=== PATIENT | male | born 1930 | race Caucasian/White ===

== ENCOUNTER 2016-05-16 01:34 | Emergency (ER) | payer OTHER ==
[~2016-05-16 01:34] MED LIST: INSULIN GLARGINE 100 UNIT/ML VIAL SC SCH; INSULIN LISPRO 100 UNIT/ML SC SCH
[2016-05-16 01:45] VITALS: PULSE 72
[2016-05-16] MEDS ORDERED: INSULIN LISPRO 100 UNIT/ML SC ONE (02:53)
--- NOTE | 2016-05-16 03:02 | EDPHY ---
H & P Stated Complaint: insulin pump out of insulin- last BQ 174 at 0100 Time Seen by Provider: 05/16/16 02:28 HPI/ROS: HPI The patient presents because he is out of insulin for his insulin pump. He ran out earlier this evening. He said he had a refill in the refrigerator, but he does not. His last blood glucose was 174. He denies any nausea or vomiting, abdominal pain, any other symptoms.. REVIEW OF SYSTEMS Constitutional: No fever, no chills. Skin: No rashes. Neurological: No headache. PMHx: Diabetes on insulin, followed at [facility] Hx: Lives independently PHYSICAL General Appearance: Alert, no distress Eyes: Pupils equal and round no pallor or injection ENT, Mouth: Mucous membranes moist Respiratory: Breathing comfortably Skin: Warm and dry, no rashes Musculoskeletal: Neck is supple non tender Extremities: symmetrical, full range of motion Psychiatric: Patient is oriented X 3, there is no agitation Source: Patient Exam Limitations: No limitations - Medical/Surgical History Hx Asthma: No Hx Chronic Respiratory Disease: No Hx Diabetes: Yes Hx Cardiac Disease: No Hx Renal Disease: No Hx Cirrhosis: No Hx HIV/AIDS: No Hx Splenectomy or Spleen Trauma: No Other PMH: HTN, hypothyroid, - Social History Smoking Status: Never smoked Constitutional: Initial Vital Signs Temperature (C) 36.8 C 05/16/16 01:38 Heart Rate 72 05/16/16 01:38 Respiratory Rate 18 05/16/16 01:38 Blood Pressure 154/79 H 05/16/16 01:38 O2 Sat (%) 90 L 05/16/16 01:38 O2 Delivery Mode Room Air Allergies/Adverse Reactions: No Known Allergies Allergy (Unverified 05/16/16 01:37) Home Medications: Medication Instructions Recorded Insulin Lispro [Humalog] 300 unit SQ ONCE #1 cartridge 05/16/16 Insulin Syringe 05/16/16 THYROID 05/16/16 Medical Decision Making Differential Diagnosis: This is an 86-year-old man with diabetes who uses an insulin pump who ran out of the insulin for his pump earlier tonight. His last blood sugar was 174. He is not exhibiting any signs or symptoms concerning for DKA or HHS. We will order him the Humalog but he usually uses to put in his pump. He will follow up tomorrow with his doctors at [facility]. Departure - Departure Disposition: Home, Routine, Self-Care Clinical Impression: Medication refill, Insulin pump status, Hyperglycemia Condition: Good Instructions: Insulin Lispro (By injection) Referrals: VENITA HENSLEY [Primary Care Provider] - As per Instructions Prescriptions: Insulin Lispro [Humalog] 300 unit SQ ONCE #1 cartridge
[2016-05-16 03:42] VITALS: BP 160/79; RESP 15; TEMP 97.9; O2SAT 92
== END 2016-05-16 03:42 | disposition home or self-care (01) ==
DX: Z76.0 Encounter for issue of repeat prescription (principal); E11.65 Type 2 diabetes mellitus with hyperglycemia; I10 Essential (primary) hypertension; Z79.4 Long term (current) use of insulin
CPT/HCPCS: 99281; J1815

== ENCOUNTER 2016-11-24 08:47 | Emergency (ER) | payer OTHER ==
--- NOTE | 2016-11-24 09:04 | EDPHY ---
H & P Stated Complaint: n/v/abd pain Time Seen by Provider: 11/24/16 08:59 HPI/ROS: CHIEF COMPLAINT: Nausea, vomiting, abdominal cramping HISTORY OF PRESENT ILLNESS: The patient presents to the ED with a 1 day history of nausea, vomiting and abdominal cramping. The patient has a history of insulin dependent diabetes. He is on insulin pump. The patient reports his blood sugars have been well controlled. He checked it 3 or 4 times yesterday was normal. He had no symptoms of abdominal pain, nausea or vomiting yesterday. The patient denies any history of abdominal surgery. The patient denies additional significant past medical history. The patient has no complaints of dysuria. The patient does report he chronically has 2 alcoholic beverages a night. REVIEW OF SYSTEMS: A comprehensive 10 point review of systems is otherwise negative aside from elements mentioned in the history of present illness. Source: Patient - Personal History Current Tetanus/Diphtheria Vaccine: Yes - Medical/Surgical History Hx Asthma: No Hx Chronic Respiratory Disease: No Hx Diabetes: Yes Hx Cardiac Disease: No Hx Renal Disease: No Hx Cirrhosis: No Hx Alcoholism: No Hx HIV/AIDS: No Hx Splenectomy or Spleen Trauma: No Other PMH: HTN, hypothyroid, diabetic - Social History Smoking Status: Never smoked - Physical Exam Exam: General Appearance: Alert, no distress Eyes: Pupils equal and round no pallor or injection ENT, Mouth: Mucous membranes moist Respiratory: There are no retractions, lungs are clear to auscultation Cardiovascular: Regular rate and rhythm Gastrointestinal: Abdomen is soft and nontender, no masses, bowel sounds normal Neurological: A&O, normal motor function, normal sensory exam, normal cranial nerves Skin: Warm and dry, no rashes Musculoskeletal: Neck is supple nontender Extremities: symmetrical, full range of motion Constitutional: Initial Vital Signs Temperature (C) 36.7 C 11/24/16 08:50 Heart Rate 81 11/24/16 08:50 Respiratory Rate 20 11/24/16 08:50 Blood Pressure 156/64 H 11/24/16 08:50 O2 Sat (%) 92 11/24/16 08:50 O2 Delivery Mode Room Air Allergies/Adverse Reactions: No Known Allergies Allergy (Verified 11/24/16 08:49) Home Medications: Medication Instructions Recorded Insulin Lispro [Humalog] 300 unit SQ ONCE #1 cartridge 05/16/16 Insulin Syringe 05/16/16 THYROID 05/16/16 Lovastatin 11/24/16 Ondansetron Odt [Zofran Odt] 4 mg PO Q4PRN PRN #20 tab 11/24/16 Ondansetron Odt [Zofran Odt] 4 mg PO Q4PRN PRN #20 tab 11/24/16 Medical Decision Making - Diagnostics Imaging Results: Imaging Impressions Abdomen CT 11/24/16 12:25 Impression: 1. Normal appendix. No acute localizing intraabdominal inflammatory process. 2. Left direct inguinal hernia containing a short segment of sigmoid colon (no obstruction or inflammation). 3. Old small subcapsular splenic hematoma. No evidence of acute injury. 4. Suspect pancreatic insufficiency. Findings discussed with Emergency Department physician, Dr. Mike Zhang on November 24, 2016 at 1313 hours. ED Course/Re-evaluation: The patient presents to the ED with a less than 1 day history of acute nausea and vomiting. The patient does have a history of diabetes. The patient has had no history of increased blood sugar over the past several days. He does control his disease with an insulin pump. The patient's vital signs are noted to be stable upon arrival. I also find his initial abdominal examination to be reassuring. The patient had an IV established. He received 1 L of normal saline for volume depletion. He received 4 mg of IV Zofran. The patient was reexamined several times throughout my stay in the emergency department. After being for 2 hours I reexamined the patient. He is noted to have minimal tenderness to palpation in his right lower quadrant. Given his leukocytosis and complaints of abdominal pain a CT scan of the abdomen pelvis was ordered. Fortunately the results of this study demonstrate no evidence of intra-abdominal pathology. The patient underwent subsequent evaluation here in the ED. He was examined by myself multiple times over a 4 hour period. His abdominal tenderness has resolved. The patient is tolerating normal p.o. intake. The patient has a benign abdominal examination. I do feel the patient can be discharged home with plans to return to the ER for any progressive or worsening symptoms. The patient will be given a prescription for Zofran. I believe the etiology of his symptoms are likely secondary to a mild viral gastritis. Differential Diagnosis: Differential diagnosis considered includes appendicitis diverticulitis pancreatitis dehydration diabetic ketoacidosis renal failure metabolic abnormality - Data Points Laboratory Results: Laboratory Results 11/24/16 09:18 11/24/16 09:18 11/24/16 11/24/16 11/24/16 12:16 09:18 09:18 WBC 15.36 10^3/uL H 10^3/uL (3.80-9.50) RBC 5.42 10^6/uL 10^6/uL (4.40-6.38) Hgb 16.7 g/dL g/dL (13.7-17.5) POC Hgb 17.7 gm/dL H gm/dL (13.7-17.5) Hct 48.7 % % (40.0-51.0) POC Hct 52 % H % (40-51) MCV 89.9 fL fL (81.5-99.8) MCH 30.8 pg pg (27.9-34.1) MCHC 34.3 g/dL g/dL (32.4-36.7) RDW 14.3 % % (11.5-15.2) Plt Count 221 10^3/uL 10^3/uL (150-400) MPV 10.2 fL fL (8.7-11.7) Neut % (Auto) 88.1 % H % (39.3-74.2) Lymph % (Auto) 4.3 % L % (15.0-45.0) [place] % (Auto) 6.4 % % (4.5-13.0) Eos % (Auto) 0.2 % L % (0.6-7.6) Baso % (Auto) 0.5 % % (0.3-1.7) Nucleat RBC Rel Count 0.0 % % (0.0-0.2) Absolute Neuts (auto) 13.54 10^3/uL H 10^3/uL (1.70-6.50) Absolute Lymphs (auto) 0.66 10^3/uL L 10^3/uL (1.00-3.00) Absolute Monos (auto) 0.99 10^3/uL H 10^3/uL (0.30-0.80) Absolute Eos (auto) 0.03 10^3/uL 10^3/uL (0.03-0.40) Absolute Basos (auto) 0.07 10^3/uL 10^3/uL (0.02-0.10) Absolute Nucleated RBC 0.00 10^3/uL 10^3/uL (0-0.01) Immature Gran % 0.5 % % (0.0-1.1) Immature Gran # 0.07 10^3/uL 10^3/uL (0.00-0.10) POC Sodium 136 mEq/L mEq/L (134-144) Sodium 133 mEq/L L mEq/L (134-144) POC Potassium 5.9 mEq/L H mEq/L (3.3-5.0) Potassium 4.8 mEq/L mEq/L (3.5-5.2) POC Chloride 100 mEq/L mEq/L (97-110) Chloride 100 mEq/L mEq/L (97-110) Carbon Dioxide 24 mEq/l mEq/l (22-31) Anion Gap 9 mEq/L mEq/L (8-16) POC BUN 28 mg/dL H mg/dL (7-23) BUN 22 mg/dL mg/dL (7-23) Creatinine 1.5 mg/dL H mg/dL (0.7-1.3) POC Creatinine 1.3 mg/dL mg/dL (0.7-1.3) Estimated GFR 45 Glucose 195 mg/dL H mg/dL (70-100) POC Glucose 186 mg/dL H mg/dL (70-100) Calcium 8.9 mg/dL mg/dL (8.5-10.4) Total Bilirubin 0.8 mg/dL mg/dL (0.1-1.4) Conjugated Bilirubin 0.3 mg/dL mg/dL (0.0-0.5) Unconjugated Bilirubin 0.5 mg/dL mg/dL (0.0-1.1) AST 32 IU/L IU/L (17-59) ALT 29 IU/L IU/L (21-72) Alkaline Phosphatase 60 IU/L IU/L (38-126) Total Protein 6.3 g/dL g/dL (6.3-8.2) Albumin 3.8 g/dL g/dL (3.5-5.0) Lipase 48 IU/L IU/L (23-300) Medications Given: Discontinued Medications Sodium Chloride (Ns) 1,000 mls @ 0 mls/hr IV EDNOW ONE; Wide Open PRN Reason: Protocol Stop: 11/24/16 09:06 Last Admin: 11/24/16 09:22 Dose: 1,000 mls Sodium Chloride (Ns) 1,000 mls @ 0 mls/hr IV ONCE ONE PRN Reason: Wide Open Stop: 11/24/16 13:34 Last Admin: 11/24/16 13:35 Dose: 1,000 mls Point of Care Test Results: 11/24/16 12:16 POC Sodium 136 POC Potassium 5.9 H POC Chloride 100 POC BUN 28 H POC Creatinine 1.3 POC Glucose 186 H Departure - Departure Disposition: Home, Routine, Self-Care Clinical Impression: Vomiting Condition: Good Instructions: Acute Nausea and Vomiting (ED) Additional Instructions: Sometimes we are unable to diagnose an obvious cause of abdominal pain in the Emergency Department. Based upon our evaluation today, we see no obvious explanation for your pain. Because more serious conditions can be difficult to diagnose early in the course of their presentation, we ask that you return to the Emergency Department in 8-12 hours for a recheck if you are still having pain. This is necessary to exclude the development of a more serious condition such as appendicitis or other intra-abdominal emergency. In the event your pain markedly increases before that time or you develop intractable vomiting or fever return to the Emergency Department immediately. Zofran as needed for nausea Referrals: VENITA HENSLEY [Primary Care Provider] - As per Instructions Prescriptions: Ondansetron Odt [Zofran Odt] 4 mg PO Q4PRN PRN #20 tab PRN Reason: For Nausea Ondansetron Odt [Zofran Odt] 4 mg PO Q4PRN PRN #20 tab PRN Reason: For Nausea
[2016-11-24] MEDS ORDERED: NS 1,000 ML IV ONE ×2 (09:05→13:33)
[2016-11-24] MEDS ORDERED: ONDANSETRON 4 MG/2 ML VIAL ONE (09:08)
[2016-11-24 09:30] LABS: % IMMATURE GRANULYOCYTES 0.5 % (0.0-1.1); ABSOLUTE IMMATURE GRANULOCYTES 0.07 10^3/uL (0.00-0.10); ADD DIFF? NO; ADD MORPH? NO; ADD SCAN? NO; ATYPICAL LYMPHOCYTE FLAG 0 (0-99); FRAGMENT RBC FLAG 0 (0-99); HEMATOCRIT 48.7 % (40.0-51.0); HEMOGLOBIN 16.7 g/dL (13.7-17.5); LEFT SHIFT FLG 0 (0-99); LIPEMIA HEMOLYSIS FLAG 90 (0-99); MEAN CELL HEMOGLOBIN 30.8 pg (27.9-34.1); MEAN CELL HEMOGLOBIN CONCENTR. 34.3 g/dL (32.4-36.7); MEAN CELL VOLUME 89.9 fL (81.5-99.8); MEAN PLATELET VOLUME 10.2 fL (8.7-11.7); PLATELET CLUMPS FLAG 0 (0-99); PLATELET COUNT 221 10^3/uL (150-400); RED BLOOD CELL COUNT 5.42 10^6/uL (4.40-6.38); RED CELL DISTRIBUTION WIDTH 14.3 % (11.5-15.2)
[2016-11-24 09:43] LABS: ALANINE AMINOTRANSFERASE 29 IU/L (21-72); ALBUMIN 3.8 g/dL (3.5-5.0); ALKALINE PHOSPHATASE 60 IU/L (38-126); ANION GAP 9 mEq/L (8-16); ASPARTATE AMINOTRANSFERASE 32 IU/L (17-59); BILIRUBIN,TOTAL 0.8 mg/dL (0.1-1.4); BILIRUBIN-CONJUGATED 0.3 mg/dL (0.0-0.5); BILIRUBIN-UNCONJUGATED 0.5 mg/dL (0.0-1.1); CALCIUM 8.9 mg/dL (8.5-10.4); CARBON DIOXIDE 24 mEq/l (22-31); CHLORIDE 100 mEq/L (97-110); CREATININE 1.5 mg/dL (0.7-1.3); GLOMERULAR FILTRATION RATE 45; GLUCOSE 195 mg/dL (70-100); POTASSIUM 4.8 mEq/L (3.5-5.2); SODIUM 133 mEq/L (134-144); TOTAL PROTEIN 6.3 g/dL (6.3-8.2)
[2016-11-24] MEDS ORDERED: IOPAMIDOL (ISOVUE-300) 100 ML BTL ONE (12:32)
[2016-11-24 14:56] VITALS: BP 185/92; PULSE 85; RESP 16; TEMP 99.3; O2SAT 92
== END 2016-11-24 14:56 | disposition home or self-care (01) ==
DX: R11.10 Vomiting, unspecified (principal); E11.9 Type 2 diabetes mellitus without complications; I10 Essential (primary) hypertension; E86.9 Volume depletion, unspecified; Z79.4 Long term (current) use of insulin
CPT/HCPCS: 74177; 96360; 99285; Q9967; 82947-QW; J2405

== ENCOUNTER 2018-06-29 17:50 | Emergency (ER) | payer OTHER ==
--- NOTE | 2018-06-29 17:57 | EDPHY ---
H & P Time Seen by Provider: 06/29/18 17:53 HPI/ROS: HPI Stroke alert. Left-sided facial droop left-sided weakness. 87-year-old male by ambulance. The patient was having dinner with friends when at 5:20 p.m. He suddenly stop spine into their questions. On EMS arrival he had an obvious facial droop on the left side. EMS reports complete flaccidness in his left upper extremity. On arrival to the emergency department symptoms have resolved. The patient currently does not have any complaints. He does have a history of diabetes. EMS checked his blood sugar x2 with readings of 108 and 140. ROS: Constitutional: No fever, no chills. As above. Eyes: No discharge. No changes in vision. ENT: No sore throat. No nasal congestion or rhinorrhea. Respiratory: No cough. No shortness of breath. Cardiac: No chest pain, no palpitations. Gastrointestinal: No abdominal pain, no vomiting, no diarrhea. Genitourinary: No hematuria. No dysuria or increased frequency with urination. Musculoskeletal: No back pain. No neck pain. No myalgias or arthralgias. Skin: No rashes. Neurological: No headache. As above. Past medical history: Hypertension, diabetes type 1, hypothyroid. Social history: Currently here by himself. Nonsmoker. No alcohol. Physical Exam: General Appearance: Alert, no distress. This patient is responding to questions appropriately and in full sentences. This patient appears well- hydrated and well-nourished. Eyes: Pupils equal and round and reactive to light at 3-2 mm bilaterally, no pallor or injection. No lid edema, erythema or injection. Respiratory: There are no retractions, lungs are clear to auscultation with good air movement bilaterally. Cardiovascular: Regular rate and rhythm. No murmur. Gastrointestinal: Abdomen is soft and nontender, no masses, bowel sounds normal. No focal tenderness at McBurney's point. No Uribe sign. Neurological: Motor sensory function is grossly intact. Cranial nerves are normal. Cerebellar function is normal. Skin: Warm and dry, no rashes. Musculoskeletal: Neck is supple and nontender. Extremities are symmetrical. All joints range without pain or impingement. Psychiatric: No agitation. No depression. Database: EKG: EKG time is 6:27 p.m.; EKG shows a narrow complex normal sinus rhythm with a ventricular rate of 64. Borderline first-degree AV block. The QRS, QT intervals are within normal limits. There are no ST-T wave changes indicative of acute ischemic or injury pattern. No evidence of right heart strain. Interpreted by me. Imaging: CT head without contrast: Age-related changes. Otherwise negative. Results were discussed with staff radiologist Dr. Deonte Teresa. MRI brain without contrast: No acute pathology. Results were discussed with staff radiologist Dr. Dawson Jones. Bilateral carotid ultrasounds: Findings expected with age, 20% stenosis on the right, 40% on the left. No hemodynamically significant stenosis. Results were discussed with staff radiologist Dr. Dawosn Jones. Procedures: Emergency department course: Patient initially evaluated by myself immediately on arrival. Initial neurologic Assessment is nonfocal. The patient is currently not a tPA candidate. He was sent for CT imaging after my initial assessment. 6:25 p.m., the patient is return to his room. Repeat neurologic Assessment is nonfocal. He does not recall the event specifically. He does remember sitting with his friends having dinner. EKG an MRI to be obtained. Patient consents. I discussed admission with him for observation in the hospital overnight. He does not want to do this. 8:15 p.m., the patient was re-evaluated, resting comfortably at this time. He is about to have his ultrasound done. Repeat neurologic Assessment is nonfocal. I again discussed admission with the patient. I discussed my concerns about the fact that he does live alone although he has close friends and neighbors next door who are involved with his care. I also explained I was concerned about his kidney function. He again declines admission. I feel he is of sound mind and has capacitance to make decisions. His friends and next door neighbors who were sitting with him when he had this event are at the bedside. They were able to contact his son Jose who lives in [place]. His son has power of state attorney. I discussed the patient's presentation to the emergency department and results of workup and plan for admission with his son. I explained that the patient is declining admission. The son told me that that is his choice to make in the son feels comfortable with him going home. 8:45 p.m., the patient was re-evaluated, repeat neurologic Assessment again is nonfocal. The patient and neighbors who are at the bedside told me that his son Jose is coming in to town next week for [place]. The patient also has an appointment with his primary care physician at [facility], this is Dr. Degroot , scheduled for next week as well. I explained my concern again about his elevated creatinine and explained that this needed to be evaluated next week by his primary care physician. 9:05 p.m., results of carotid artery ultrasound discussed with the patient. Plan is as above. The patient will be discharged home with his neighbors. Return to emergency department precautions thoroughly reviewed. All of their questions were answered. The patient was discharged home in good condition with his neighbors. Differential Diagnosis: The differential diagnosis on this patient includes but is not limited to TIA, hypoglycemia, transient global amnesia. This represents a partial list of diagnoses considered. These considerations are based on history, physical exam , past history, reassessment and diagnostic testing. Smoking Status: Never smoked Constitutional: Initial Vital Signs Temperature (C) 36.8 C 06/29/18 18:40 Heart Rate 63 06/29/18 18:40 Respiratory Rate 18 06/29/18 18:40 Blood Pressure 102/63 06/29/18 18:40 O2 Sat (%) 94 06/29/18 18:40 O2 Delivery Mode Room Air Allergies/Adverse Reactions: No Known Allergies Allergy (Verified 06/29/18 18:42) Home Medications: Medication Instructions Recorded Insulin Lispro [Humalog] 300 unit SQ ONCE #1 cartridge 05/16/16 Insulin Syringe 05/16/16 THYROID 05/16/16 Lovastatin 11/24/16 Ondansetron Odt [Zofran Odt] 4 mg PO Q4PRN PRN #20 tab 11/24/16 Ondansetron Odt [Zofran Odt] 4 mg PO Q4PRN PRN #20 tab 11/24/16 Medical Decision Making - Diagnostics Imaging Results: Imaging Impressions Head CT 06/29/18 17:54 Impression: Underlying atrophy, ventriculomegaly, white matter disease, without acute abnormality identified. Results called to Dr. Mauro Preston at 6:25 PM at the time of the interpretation. Brain MRI 06/29/18 18:23 Impression: 1. No acute ischemia or hemorrhage. 2. Moderate atrophy and moderate periventricular white matter disease. Findings discussed with Emergency Department physician, Mauro Hand M.D., on June 29, 2018 at 1935. - Data Points Laboratory Results: Laboratory Results 06/29/18 18:05 06/29/18 18:05 06/29/18 06/29/18 06/29/18 18:05 18:05 18:05 WBC RBC Hgb POC Hgb 15.3 gm/dL gm/dL (13.7-17.5) Hct POC Hct 45 % % (40-51) MCV MCH MCHC RDW Plt Count MPV Neut % (Auto) Lymph % (Auto) [place] % (Auto) Eos % (Auto) Baso % (Auto) Nucleat RBC Rel Count Absolute Neuts (auto) Absolute Lymphs (auto) Absolute Monos (auto) Absolute Eos (auto) Absolute Basos (auto) Absolute Nucleated RBC Immature Gran % Immature Gran # PT 12.7 SEC SEC (12.0-15.0) INR 0.99 (0.83-1.16) APTT 30.0 SEC SEC (23.0-38.0) POC Sodium 136 mEq/L mEq/L (135-145) Sodium 132 mEq/L L mEq/L (135-145) POC Potassium 4.1 mEq/L mEq/L (3.3-5.0) Potassium 4.4 mEq/L mEq/L (3.5-5.2) POC Chloride 99 mEq/L mEq/L (97-110) Chloride 97 mEq/L mEq/L (97-110) Carbon Dioxide 22 mEq/l mEq/l (22-31) POC Total CO2 21 mEq/L L mEq/L (22-31) Anion Gap 13 mEq/L mEq/L (6-14) POC BUN 17 mg/dL mg/dL (7-23) BUN 17 mg/dL mg/dL (7-23) Creatinine 1.7 mg/dL H mg/dL (0.7-1.3) POC Creatinine 1.8 mg/dL H mg/dL (0.7-1.3) Estimated GFR 38 Glucose 107 mg/dL H mg/dL (70-100) POC Glucose 112 mg/dL H mg/dL (70-100) Calcium 9.2 mg/dL mg/dL (8.5-10.4) 06/29/18 18:05 WBC 8.39 10^3/uL 10^3/uL (3.80-9.50) RBC 4.89 10^6/uL 10^6/uL (4.40-6.38) Hgb 14.2 g/dL g/dL (13.7-17.5) POC Hgb Hct 43.3 % % (40.0-51.0) POC Hct MCV 88.5 fL fL (81.5-99.8) MCH 29.0 pg pg (27.9-34.1) MCHC 32.8 g/dL g/dL (32.4-36.7) RDW 14.0 % % (11.5-15.2) Plt Count 284 10^3/uL 10^3/uL (150-400) MPV 9.8 fL fL (8.7-11.7) Neut % (Auto) 66.2 % % (39.3-74.2) Lymph % (Auto) 16.1 % % (15.0-45.0) [place] % (Auto) 10.0 % % (4.5-13.0) Eos % (Auto) 6.3 % % (0.6-7.6) Baso % (Auto) 1.0 % % (0.3-1.7) Nucleat RBC Rel Count 0.0 % % (0.0-0.2) Absolute Neuts (auto) 5.56 10^3/uL 10^3/uL (1.70-6.50) Absolute Lymphs (auto) 1.35 10^3/uL 10^3/uL (1.00-3.00) Absolute Monos (auto) 0.84 10^3/uL H 10^3/uL (0.30-0.80) Absolute Eos (auto) 0.53 10^3/uL H 10^3/uL (0.03-0.40) Absolute Basos (auto) 0.08 10^3/uL 10^3/uL (0.02-0.10) Absolute Nucleated RBC 0.00 10^3/uL 10^3/uL (0-0.01) Immature Gran % 0.4 % % (0.0-1.1) Immature Gran # 0.03 10^3/uL 10^3/uL (0.00-0.10) PT INR APTT POC Sodium Sodium POC Potassium Potassium POC Chloride Chloride Carbon Dioxide POC Total CO2 Anion Gap POC BUN BUN Creatinine POC Creatinine Estimated GFR Glucose POC Glucose Calcium Point of Care Test Results: Chemistry 06/29/18 18:05 POC Sodium 136 mEq/L mEq/L (135-145) POC Potassium 4.1 mEq/L mEq/L (3.3-5.0) POC Chloride 99 mEq/L mEq/L (97-110) POC Total CO2 21 mEq/L L mEq/L (22-31) POC BUN 17 mg/dL mg/dL (7-23) POC Creatinine 1.8 mg/dL H mg/dL (0.7-1.3) POC Glucose 112 mg/dL H mg/dL (70-100) ISTAT H&H 06/29/18 18:05 POC Hgb 15.3 gm/dL gm/dL (13.7-17.5) POC Hct 45 % % (40-51) Departure - Departure Disposition: Home, Routine, Self-Care Clinical Impression: Transient alteration of awareness, Renal insufficiency Condition: Good Instructions: Altered Mental Status (ED) Additional Instructions: Read and follow provided instructions. Follow-up with your primary care physician at [facility], next week as scheduled with your son. As discussed, I am concerned about your kidney function. It is important you have this re-evaluated through your primary care physician during that visit. Also, your primary care physician can easily obtain the results of all blood work and testing done in our emergency department tonight. Take your medication an insulin as prescribed. It is important you stay well hydrated. Drink lots of fluids. Eat 3-4 regularly spaced meals daily. Return to the emergency department for return of symptoms or other serious concerns. Referrals: [facility] [Outside] - As per Instructions
[2018-06-29 18:21] LABS: PLATELET COUNT 284 10^3/uL (150-400)
[2018-06-29 18:38] LABS: INR 0.99 (0.83-1.16); PROTIME(PATIENT) 12.7 SEC (12.0-15.0)
--- NOTE | 2018-06-29 21:02 | CPEKG ---
Test Reason : OPEN Blood Pressure : / mmHG Vent. Rate : 064 BPM Atrial Rate : 064 BPM P-R Int : 229 ms QRS Dur : 090 ms QT Int : 413 ms P-R-T Axes : 052 -45 055 degrees QTc Int : 426 ms Sinus rhythm Prolonged TX interval Inferior infarct, old Probable anteroseptal infarct, old Confirmed by Mauro Hand ([id number] on 06/29/2018 9:01:31 PM Referred By: Mauro Hand Confirmed By:Mauro Hand
[2018-06-29 21:47] VITALS: BP 123/54
== END 2018-06-29 21:48 | disposition home or self-care (01) ==
LOC: EDUNIT#
DX: R40.4 Transient alteration of awareness (principal); N28.9 Disorder of kidney and ureter, unspecified; R29.810 Facial weakness; E11.9 Type 2 diabetes mellitus without complications; I10 Essential (primary) hypertension
CPT/HCPCS: 70551-PN; 82435-PO; 82565-PO; 82947-PO; 84132-PO; 84295-PO; 84520-PO; 85014-ER

== ENCOUNTER 2018-07-25 18:26 | Inpatient (IN) | payer OTHER ==
--- NOTE | 2018-07-25 18:31 | EDPHY ---
H & P Time Seen by Provider: 07/25/18 18:30 HPI/ROS: CHIEF COMPLAINT: "I think he had a seizure" HISTORY OF PRESENT ILLNESS: 87-year-old male history of insulin-dependent diabetes with pump, arrives via ambulance with care provider who provides the majority of history. She reports 2 weeks of 1 episode of diarrhea per day with intermittent formed stools. However the primary reason she contacted 911 today was while she was at his home this evening he appeared to have seizure-like movements and lose consciousness for approximately 5 min. She called 911 and after approximately 5 min he slowly returned to baseline other does note a post episode phase of confusion. No history of seizure. No complaints of pain. No headache. No slurred speech. No facial droop. No nausea or vomiting. He last ate dinner No nausea or vomiting. No abdominal pain. No fever or chills. No antecedent illness. No recent antibiotic use. No international travel. No untreated water sources. No melena hematochezia. He notes 18 lb weight loss over the past 18 months secondary to decreased appetite. No abdominal pain. REVIEW OF SYSTEMS: 10 systems reviewed and negative with the exception of the elements mentioned in the history of present illness PAST MEDICAL & SURGICAL HISTORY: Insulin-dependent diabetes. SOCIAL HISTORY: PHYSICAL EXAM (Prior to examination, patient consented to physical exam, hands were washed and my usual and customary physical exam procedures followed) 1) GENERAL: Well-developed, well-nourished, alert and oriented. Appears to be in no acute distress. 2) HEAD: Normocephalic, atraumatic 3) HEENT: Pupils equal, round, reactive to light bilaterally. Sclera anicteric. Nasopharynx, oropharynx, clear, no lesions. Moist mucous membranes. 4) NECK: Full range of motion, no meningeal signs. 5) LUNGS: Clear auscultation bilaterally, no wheezes, no rhonchi, no retractions. 6) HEART: Regular rate and rhythm, no murmur, no heave, no gallop. 7) ABDOMEN: No guarding, no rebound, no focal tenderness, negative McBurney's, negative Uribe's, negative Rovsing's, negative peritoneal sign, 8) MUSCULOSKELETAL: Moving all extremities, no focal areas of tenderness, no obvious trauma. No peripheral edema or discoloration. 9) BACK: No CVA tenderness, no midline vertebral tenderness, no fluctuance, no step-off, no obvious trauma, no visual or palpable abnormality. 10) SKIN: No rash, no petechiae. 11) Psychiatric: Patient is oriented X 3, there is no agitation. 12) NEURO: Awake, alert, and oriented to person, place and time. Answers questions appropriately. There were no obvious focal neurologic abnormalities. No cerebellar dysfunction. Cranial nerves 2 through to 12 intact. Normal steady gait. Upper and lower extremities bilaterally with strength 5 / 5, reflexes 2+. DIFFERENTIAL DIAGNOSIS: Differential diagnosis includes but is not limited to, in no particular order, seizure , vasovagal syncope, arrhythmia, dehydration, and blood loss. - Medical/Surgical History Hx Asthma: No Hx Chronic Respiratory Disease: No Hx Diabetes: Yes Hx Cardiac Disease: No Hx Renal Disease: No Hx Cirrhosis: No Hx Alcoholism: No Hx HIV/AIDS: No Hx Splenectomy or Spleen Trauma: No Other PMH: HTN, hypothyroid, diabetic - Social History Smoking Status: Never smoked Constitutional: Initial Vital Signs Temperature (C) 36.7 C 07/25/18 18:32 Heart Rate 85 07/25/18 18:32 Respiratory Rate 16 07/25/18 18:32 Blood Pressure 160/64 H 07/25/18 18:32 O2 Sat (%) 94 07/25/18 18:32 O2 Delivery Mode Room Air Allergies/Adverse Reactions: No Known Allergies Allergy (Verified 06/29/18 18:42) Home Medications: Medication Instructions Recorded Clopidogrel Bisulfate [Clopidogrel] 75 mg PO DAILY 07/25/18 Glucagon HCl [Glucagon] 1 mg IM DAILY PRN 07/25/18 Insulin Lispro [humALOG LISPRO 100 0 unit SC AD 07/25/18 units/ml (*)] Insulin Pump, Patient Own 0 units SQ AD 07/25/18 Levothyroxine [Synthroid 75 mcg 112.5 mcg PO DAILY06 07/25/18 (*)] Losartan Potassium [Cozaar 25 mg 12.5 mg PO DAILY 07/25/18 (*)] Lovastatin 30 mg PO DAILY 07/25/18 Medical Decision Making - Diagnostics Imaging Results: Imaging Impressions Chest X-Ray 07/25/18 18:43 Impression: 1. Suspect airways disease. 2. Bibasilar opacities, presumably atelectasis, with clinical correlation to exclude pneumonia. Head CT 07/25/18 18:43 Impression: 1. Elderly brain with atrophy and probable white matter small vessel disease. 2. No significant change from the prior studies. Results called and discussed with Carlos HALL on 07/25/2018 at 19:06. Images reviewed myself Procedures: Patient has been re-evaluated with serial examinations. Reviewed his old medical records including his early June 2018 emergency department visit for stroke versus TIA which point he had extensive imaging including MRI imaging. His CT imaging, noncontrast, today from the ER is unremarkable interpreted by staff radiologist with images reviewed myself. Patient is been answering questions appropriately. I reviewed his insulin pump history with him showing now drops in the past 24 hours. I discussed with the home health aide that is with him possibility of new onset seizure. At this time recommended admission to the hospital for further evaluation of syncope versus seizure. - Data Points Laboratory Results: Laboratory Results 07/25/18 18:41 07/25/18 19:50 07/25/18 07/25/18 07/25/18 19:50 19:50 19:05 WBC RBC Hgb Hct MCV MCH MCHC RDW Plt Count MPV Neut % (Auto) Lymph % (Auto) Nolan % (Auto) Eos % (Auto) Baso % (Auto) Nucleat RBC Rel Count Absolute Neuts (auto) Absolute Lymphs (auto) Absolute Monos (auto) Absolute Eos (auto) Absolute Basos (auto) Absolute Nucleated RBC Immature Gran % Immature Gran # Sodium 131 mEq/L L mEq/L (135-145) Potassium 4.5 mEq/L mEq/L (3.5-5.2) Chloride 100 mEq/L mEq/L (97-110) Carbon Dioxide 23 mEq/l mEq/l (22-31) Anion Gap 8 mEq/L mEq/L (6-14) BUN 18 mg/dL mg/dL (7-23) Creatinine 1.1 mg/dL mg/dL (0.7-1.3) Estimated GFR > 60 Glucose 112 mg/dL H mg/dL (70-100) Hemoglobin A1c Estim Average Glucose Calcium 8.5 mg/dL mg/dL (8.5-10.4) Total Bilirubin Conjugated Bilirubin Unconjugated Bilirubin AST ALT Alkaline Phosphatase POC Troponin I 0.04 ng/mL ng/mL (0.00-0.08) Total Protein Albumin Lipase Beta-Hydroxybutyrate 0.51 mmol/L H mmol/L (0.02-0.27) TSH 2.120 uIU/mL uIU/mL (0.465-4.680) 07/25/18 07/25/18 07/25/18 18:53 18:41 18:41 WBC RBC Hgb Hct MCV MCH MCHC RDW Plt Count MPV Neut % (Auto) Lymph % (Auto) Nolan % (Auto) Eos % (Auto) Baso % (Auto) Nucleat RBC Rel Count Absolute Neuts (auto) Absolute Lymphs (auto) Absolute Monos (auto) Absolute Eos (auto) Absolute Basos (auto) Absolute Nucleated RBC Immature Gran % Immature Gran # Sodium REJ Potassium REJ Chloride REJ Carbon Dioxide REJ Anion Gap REJ BUN REJ Creatinine REJ Estimated GFR REJ Glucose REJ Hemoglobin A1c Pending Estim Average Glucose Pending Calcium REJ Total Bilirubin REJ Conjugated Bilirubin REJ Unconjugated Bilirubin REJ AST REJ ALT REJ Alkaline Phosphatase REJ POC Troponin I TNP Total Protein REJ Albumin REJ Lipase REJ Beta-Hydroxybutyrate REJ TSH 07/25/18 18:41 WBC 10.59 10^3/uL H 10^3/uL (3.80-9.50) RBC 4.67 10^6/uL 10^6/uL (4.40-6.38) Hgb 13.6 g/dL L g/dL (13.7-17.5) Hct 41.8 % % (40.0-51.0) MCV 89.5 fL fL (81.5-99.8) MCH 29.1 pg pg (27.9-34.1) MCHC 32.5 g/dL g/dL (32.4-36.7) RDW 13.8 % % (11.5-15.2) Plt Count 258 10^3/uL 10^3/uL (150-400) MPV 10.0 fL fL (8.7-11.7) Neut % (Auto) 70.5 % % (39.3-74.2) Lymph % (Auto) 13.3 % L % (15.0-45.0) Nolan % (Auto) 10.9 % % (4.5-13.0) Eos % (Auto) 4.3 % % (0.6-7.6) Baso % (Auto) 0.8 % % (0.3-1.7) Nucleat RBC Rel Count 0.0 % % (0.0-0.2) Absolute Neuts (auto) 7.46 10^3/uL H 10^3/uL (1.70-6.50) Absolute Lymphs (auto) 1.41 10^3/uL 10^3/uL (1.00-3.00) Absolute Monos (auto) 1.15 10^3/uL H 10^3/uL (0.30-0.80) Absolute Eos (auto) 0.46 10^3/uL H 10^3/uL (0.03-0.40) Absolute Basos (auto) 0.09 10^3/uL 10^3/uL (0.02-0.10) Absolute Nucleated RBC 0.00 10^3/uL 10^3/uL (0-0.01) Immature Gran % 0.2 % % (0.0-1.1) Immature Gran # 0.02 10^3/uL 10^3/uL (0.00-0.10) Sodium Potassium Chloride Carbon Dioxide Anion Gap BUN Creatinine Estimated GFR Glucose Hemoglobin A1c Estim Average Glucose Calcium Total Bilirubin Conjugated Bilirubin Unconjugated Bilirubin AST ALT Alkaline Phosphatase POC Troponin I Total Protein Albumin Lipase Beta-Hydroxybutyrate TSH Medications Given: Discontinued Medications Sodium Chloride (Ns) 1,000 mls @ 0 mls/hr IV EDNOW ONE; Wide Open PRN Reason: Protocol Stop: 07/25/18 18:33 Last Admin: 07/25/18 19:14 Dose: 1,000 mls Point of Care Test Results: Chemistry 07/25/18 07/25/18 19:05 18:53 POC Troponin I 0.04 ng/mL ng/mL TNP (0.00-0.08) Departure - Departure Disposition: [facility] Inpatient Acute Clinical Impression: possible syncope, possible seizure Condition: Fair NIH Stroke Scale Date of Exam: 07/25/18 Time of Exam: 18:40 Level of Consciousness: Alert LOC Questions: Answers Both LOC Commands: Performs Both Correctly Best Gaze: Normal Visual: No Visual Loss Facial Palsy: Normal Motor Arm-Left: No Drift Motor Arm-Right: No Drift Motor Leg-Left: No Drift Motor Leg-Right: No Drift Limb Ataxis: Absent Sensory: Normal Best Language: No Aphasia Dysarthria: Normal Extinction and Inattention (Neglect): No Abnormality NIH Scale Score: 0
[2018-07-25] MEDS ORDERED: NS 1,000 ML IV ONE (18:32)
[2018-07-25 18:55] LABS: PLATELET COUNT 258 10^3/uL (150-400)
[2018-07-25] MEDS ORDERED: ACETAMINOPHEN 325 MG TAB PO PRN (20:30)
[2018-07-25] MEDS ORDERED: ONDANSETRON DISINTEGRATING 4 MG TAB PO PRN (20:30)
[2018-07-25] MEDS ORDERED: ONDANSETRON 4 MG/2 ML VIAL IVP PRN (20:30)
[2018-07-25] MEDS ORDERED: INSULIN LISPRO 100 UNIT/ML SC SCH (20:45)
[2018-07-25] MEDS ORDERED: NS 1,000 ML IV SCH (21:00)
[2018-07-25] MEDS ORDERED: D50W 25 GM/50 ML SYR IVP PRN (21:36)
--- NOTE | 2018-07-25 21:40 | GHP ---
[f rep st] HISTORY AND PHYSICAL DATE OF ADMISSION: 07/25/2018 CHIEF COMPLAINT: Syncope versus seizure. PRIMARY CARE PHYSICIAN: Dr. Degroot at . HISTORY OF PRESENT ILLNESS: An 87-year-old male with hypertension, type 1 diabetes on insulin pump, depression, presents with a "shaking episode." History is provided by his caregiver at bedside as patient is not a good historian. He has had a decreased appetite and p.o. intake for the past week. He just had a bite of banana this morning. He felt nauseated and had diarrhea, unclear how many episodes. He slumped over and it was noted that his upper body was shaking. They checked his glucose, it was 148. He did not have bowel or bladder incontinence. Did not bite his tongue. No recent falls. He uses a cane. He was seen at [facility] ER 06/29/2018 for left-sided facial droop, weakness. CT head, MRI of brain were negative. Carotid ultrasound showed a 20% stenosis on the right, 40% on the left. He declined admission. He was advised to follow up with his PCP, Dr. Degroot. He was started on Zoloft 25 mg a week ago, but the family discontinued it because he was having a hard time waking up. Per patient, he denies chest pain, shortness of breath. No fevers, chills, or sweats. Has a daily cough, yellow sputum, which is not new. REVIEW OF SYSTEMS: I completed a 10-point review of systems, negative except as noted in HPI. PAST MEDICAL HISTORY: Hypertension, hypothyroidism, type 1 diabetes on insulin pump, malignant melanoma of the scalp. PAST SURGICAL HISTORY: Skin biopsy. FAMILY HISTORY: Father with a TIA. SOCIAL HISTORY: Lives at home. Has a caregiver 7 days a week. Uses a cane. Has a glass of wine nightly. LABS: WBC 10, hemoglobin 13, hematocrit 41, platelets 258. Coags within normal. Sodium 131, potassium 4.5, chloride 100, carbon dioxide 23, creatinine is 1.1, glucose 112, calcium 8.5. TSH pending. Troponin 0.04. EKG personally reviewed by me, anterior infarct. ASSESSMENT AND PLAN: 1. Syncope versus seizure: Appears to be dehydration given story of decreased p.o. intake, nausea and some diarrhea. Creatinine is minimally elevated with mild hypovolemia, which is consistent with history. We will hydrate. Check orthostatics. Shaking episode may have been associated with syncope. Have a lower suspicion for seizure. Had an extensive transient ischemic attack workup 3 weeks ago with a negative CT head and MRI. Consider echocardiogram but this could be done by his primary care physician if feeling better tomorrow. 2. Type 1 diabetes on insulin pump. His glucose stable here. 3. Hypothyroid. Check a TSH. 4. Query coronary artery disease: He is Plavix for unclear diagnosis; not in [facility] or [facility] records. 5. Depression: Zoloft started last week, but made him to tired. Consider Remeron which would help with mood. 5. Diet regular. 6. Deep vein thrombosis prophylaxis: Lovenox. 7. Disposition: Observation admission for IV fluids, physical therapy, occupational therapy. Code status is Do Not Resuscitate. I reviewed his MOST form. /[id number]/MODL MTDD
[2018-07-25] MEDS ORDERED: INSULIN PUMP, PATIENT OWN 1 EA MISC SCH (21:45)
[2018-07-26 04:31] LABS: PLATELET COUNT 271 10^3/uL (150-400)
[2018-07-26] MEDS: CLOPIDOGREL BISULFATE 75 MG TAB PO SCH (10:04)
[2018-07-26] MEDS: LEVOTHYROXINE 75 MCG TAB PO SCH (10:04)
[2018-07-26] MEDS: PRAVASTATIN SODIUM 20 MG TAB PO SCH (10:04)
[2018-07-26] MEDS: ENOXAPARIN 40 MG/0.4 ML SYR SC SCH (10:05)
[2018-07-26] MEDS: INSULIN LISPRO 100 UNIT/ML SC SCH ×2 (12:48→18:36)
--- NOTE | 2018-07-26 13:22 | HOSPPROG ---
Hospitalist Progress Note Assessment/Plan: The patient is a 87-year-old male with PMH insulin-dependent diabetes who was admitted for a shaking episode. ASSESSMENT/PLAN: Possible syncope vs seizure Diarrhea Acute dehydration with hypovolemia Hyponatremia, likely 2/2 above - improved Orthostatic hypotension, 2/2 above Type 1 diabetes, on insulin pump Anemia, mild Hypothyroidism Possible CAD Depression H/o melanoma, s/p resection -IVF- give another liter NS tonight. -Stool panel pending. -discussed the patient's case with his son Jose. -encouraged patient to consume more fluids to avoid dehydration. He has been told this in the past, but has had difficulty consuming fluids. -will consider home health care for patient based on PT recommendations. -SSI, hypoglycemia protocol. DC insulin pump while pt in hospital. VTE prophylaxis: Lovenox Code Status: DNR Status: Changing to inpatient for > 2 midnight stay for ongoing dehydration/ hypovolemia/diarrhea/generalized weakness requiring IV fluids and PT evaluation. Disposition: [facility] with discharge anticipated in 1 day ____ SUBJECTIVE: Today the patient feels well and wants to go home. He denies that he ever had syncope or shaking. He claims that he just that his head down to rest because he was tired. OBJECTIVE: Physical Exam: General: The patient is an elderly male who is alert and in no acute distress. HEENT: normocephalic, extraocular movements intact, conjunctivae clear. Mucous membranes slightly dull. Neck: trachea midline, no visible masses. CV: +S1/S2, RRR, no MRG. Resp: unlabored, CTAB no RRW. Abd: soft and nondistended. Musculoskeletal: Normal muscle tone/bulk. Neuro: cranial nerves II - XII grossly intact. Intact gross motor and sensory function. Psych: Appropriate mood and appropriate affect. Skin: Mild pallor. No petechiae. Heme/lymph: No peripheral edema at bilateral lower extremities. Labs/Imaging/Other Tests: Personally reviewed/interpreted. Objective: Vital Signs Temp Pulse Resp BP Pulse Ox 37.1 C 68 16 102/47 L 98 07/26/18 11:59 07/26/18 11:59 07/26/18 11:59 07/26/18 11:59 07/26/18 11:59 Laboratory Results 07/26/18 03:30 07/26/18 03:30 07/25/18 07/26/18 07/27/18 05:59 05:59 05:59 Intake Total 1150 Output Total 100 Balance 1050 - Time Spent With Patient Time Spent with Patient: greater than 35 minutes Time Spent with Patient: Greater than 35 minutes spent on this patients care, greater than 50% of time spent counseling, educating, and coordinating care regarding the above mentioned plan. ICD10 Worksheet Patient Problems: Problems Problem Status Onset Dehydration Acute - ICD10 Problem Qualifiers (1) Dehydration
--- NOTE | 2018-07-26 15:44 | ASMTCMCOM ---
CM Note CM Note Notes: Pts case discussed in tx rounds. Pt is a 87 y/o man admitted for syncope vs seizure. CM spoke to pts son Jose (P#: [phone]). Jose lives in [place]. Jose and his has been talking about transitioning his Dad into an AL. Jose has looked at [facility] in [place]. Jose can be out in [place] in a couple of days to help him transition to [facility]. Pt has caregivers everyday for a couple of hours. Pt has an hour in the morning and 2 hours in the evening. Jose reports that pts BP has been low and caused him to feel dizzy. Pt has been in his home for 30 years. Pts bedroom and bathroom is upstairs. Therapies are recommending home 18/10 supervision. The caregivers are through [facility]. Caregivers can bring pt home. Jose is aware of the recommendations. CM to follow. Date Signed: 07/26/2018 03:43 PM Electronically Signed By:AMBER Riddle
[2018-07-26] MEDS ORDERED: INSULIN LISPRO 100 UNIT/ML SC SCH (18:00)
[2018-07-26] MEDS ORDERED: NS 1,000 ML IV SCH (20:30)
--- NOTE | 2018-07-26 22:30 | PDMN ---
Medical Necessity Medical necessity: Change to inpt as of 07/26/18 @ 12:26, meets inpt criteria per MD order and [facility] [place] [place] M-123, Dehydration, inpt admission indicated for dehydration that is persistent as indicated by the following: oral rehydration therapy not tolerated or insufficient to adequately correct dehydration and appropriate intravenous treatment (eg, fluids) does not readily correct dehydration (ie, after 12 to 24 hours of treatment), pt not taking PO fluids well, upgraded to inpt for ongoing dehydration/hypovolemia/diarrhea/generalized weakness outside of OBS window, requiring IVF and PT eval. 87 y/o w/IDDM admitted for shaking episode possibly associated w/syncope/dehydration, less likely d/t seizure. Anticipate>2MN for ongoing management of above.
[2018-07-27] MEDS: LEVOTHYROXINE 75 MCG TAB PO SCH (04:15)
[2018-07-27] MEDS: INSULIN LISPRO 100 UNIT/ML SC SCH ×2 (08:53→14:46)
[2018-07-27] MEDS: PRAVASTATIN SODIUM 20 MG TAB PO SCH (08:53)
[2018-07-27] MEDS: ENOXAPARIN 40 MG/0.4 ML SYR SC SCH (08:53)
[2018-07-27] MEDS: CLOPIDOGREL BISULFATE 75 MG TAB PO SCH (08:53)
[2018-07-27] MEDS ORDERED: MAGNESIUM OXIDE 400 MG TAB PO SCH (09:00)
[2018-07-27 12:41] VITALS: BP 144/50
--- NOTE | 2018-07-27 13:49 | PDDCSUM ---
Discharge Summary Discharge Summary: Date of Admission: 07/26/2018 Date of Discharge: 07/27/2018 Discharge/admission Diagnoses: Lack of appetite/poor oral intake Depression Hyponatremia, mild Type 1 diabetes, on insulin pump Anemia, mild Hypothyroidism Possible CAD H/o melanoma, s/p resection Diarrhea, resolved Acute dehydration with hypovolemia, resolved Orthostatic hypotension, 2/2 hypovolemia Hospital Course: The patient an 87-year-old male who was admitted for a shaking episode which was initially thought to be seizure versus possible syncope. Patient later clarified that he was feeling very tired and weak in decided to put his head down on the table during his meal. Discussion with the caregiver and the patient's son revealed that the patient has not been consuming fluids or food very much in the last few weeks, but this has worsened in the last week. He was recently started on sertraline a week ago for depression. Patient had also been reported to have diarrhea, so a stool panel was checked and was negative for common GI pathogens. The patient was noted to be generally weak initially, but he improved with IV fluid rehydration. He was discharged to home with 24 hour caregiver support which was set up by the patient's son. The patient was put on mirtazapine in hopes of stimulating his appetite. Condition: Stable. Discharged to: Home. Pertinent tests/labs/imaging: Sodium on discharge-134. Medications: Please see med rec form. Resume home meds. New medication- mirtazapine 7.5 mg orally at night. Special instructions: None. Follow up: Follow up with PCP in 1 week. > 30 minutes of total time was spent on counseling and coordination of care for this patient's discharge.
--- NOTE | 2018-07-27 15:22 | ASMTDCNOTE ---
Case Management Discharge Discharge Order Complete? Answers: Yes Patient to Obtain Answers: Other Notes: caregivers Medications Transportation Arranged Answers: Other Notes: provided by caregivers arranged by son Faxed Final Orders Answers: Yes Notes: [facility] Agency/Facility Transfer Answers: Yes Notes: [facility] Report Printed & Faxed to Receiving Agency Family Notified Answers: Yes Notes: both Jose and Melonie notified on the phone b y cm Discharge Comments Notes: 07/27/2018 Case Management Note Phone call to son Jose. Jose arranged an increase private caregivers in the home to 18/10. Harley plans to fly to [place] tomorrow. Caregiver Bere [phone] to transport home. Phone call with pt daughter Vero who lives in [place] [phone]. Melonie called case management to discuss d/c plans. Vreo concerned pt is not thriving at home with 15 pound weight loss since [place]. Jose and Vero considering [place]. Vero would like her father to move to [place] to be with family. PT and OT cleared pt for return home with 18/10 supervision. Date Signed: 07/27/2018 03:21 PM Electronically Signed By:Sirisha Damon RN
--- NOTE | 2018-07-27 15:23 | ASDISCHSUM ---
Discharge Information Plan Status:Home with No Needs Medically Cleared to Leave:07/27/2018 Discharge Date:07/27/2018 CM D/C Disposition:Home, Routine, Self-Care ADT D/C Disposition:Home, Routine, Self-Care Projected Discharge Date:07/27/2018 Transportation at D/C:Other Discharge Delay Reason: Follow-Up Date:07/27/2018 Discharge Slot: Final Diagnosis: Placement Information Patient Contact Information Contact Name:LAURY Relationship:Caleb Address: City: [facility] Phone: State/Zip Code: Email: Financial Information Financial Class:Medicare Advantage Plans Primary Plan Desc:[employer] Primary Plan Number:[id number] Secondary Plan Desc: Secondary Plan Number: Assessment Information LACE LACE Length of stay for Answers: Less than 1 day current admission Acuity / Level of Answers: Yes Care: Did the patient have an inpatient admission? Comorbidities - select Answers: Diabetes (uncontrolled or all that apply controlled) Other Notes: HTN; Hypothyroid # of Emergency department Answers: 1-2 visits in the last 6 months Score: 6 Date Signed: 07/27/2018 03:22 PM Electronically Signed By:Sirisha Damon RN [facility] Progress Note CM Note CM Note Notes: Pts case discussed in tx rounds. Pt is a 87 y/o man admitted for syncope vs seizure. CM spoke to pts son Jose (P#: [phone]). Jose lives in [place]. Jose and his has been talking about transitioning his Dad into an AL. Jose has looked at [facility] in [place]. Jose can be out in [place] in a couple of days to help him transition to [facility]. Pt has caregivers everyday for a couple of hours. Pt has an hour in the morning and 2 hours in the evening. Jose reports that pts BP has been low and caused him to feel dizzy. Pt has been in his home for 30 years. Pts bedroom and bathroom is upstairs. Therapies are recommending home w/ 18/10 supervision. The caregivers are through [facility]. Caregivers can bring pt home. Jose is aware of the recommendations. CM to follow. Date Signed: 07/26/2018 03:43 PM Electronically Signed By:AMBER Riddle Case Management Discharge Plan Note Case Management Discharge Discharge Order Complete? Answers: Yes Patient to Obtain Answers: Other Notes: caregivers Medications Transportation Arranged Answers: Other Notes: provided by caregivers arranged by son Faxed Final Orders Answers: Yes Notes: [facility] Agency/Facility Transfer Answers: Yes Notes: [facility] Report Printed & Faxed to Receiving Agency Family Notified Answers: Yes Notes: both Jose and Melonie notified on the phone b y cm Discharge Comments Notes: 07/27/2018 Case Management Note Phone call to son Jose. Jose arranged an increase private caregivers in the home to 24/7. Harley plans to fly to [place] tomorrow. Caregiver Bere [phone] to transport home. Phone call with pt daughter Vero who lives in [place] [phone]. Melonie called case management to discuss d/c plans. Vero concerned pt is not thriving at home with 15 pound weight loss since . Jose and Vero considering [facility] [place]. Vero would like her father to move to [place] to be with family. PT and OT cleared pt for return home with 18/10 supervision. Date Signed: 07/27/2018 03:21 PM Electronically Signed By:Sirisha Damon RN Intervention Information
[2018-07-27] MEDS ORDERED: MIRTAZAPINE 15 MG TAB PO SCH (21:00)
--- NOTE | 2018-07-27 21:42 | CPEKG ---
Test Reason : OPEN Blood Pressure : / mmHG Vent. Rate : 068 BPM Atrial Rate : 069 BPM P-R Int : 210 ms QRS Dur : 091 ms QT Int : 417 ms P-R-T Axes : 077 -35 058 degrees QTc Int : 444 ms Sinus rhythm Left axis deviation Anterior infarct, old Confirmed by Donal Young ([id number]) on 07/27/2018 9:42:03 PM Referred By: Donal Young Confirmed By:Donal Young
== END 2018-07-27 16:42 | disposition home or self-care (01) | DRG 641 ==
LOC: EDUNIT# → F2W 21:55 → OBSVTOIN 07-26 12:26
PROVIDERS: ADMIT Internal Medicine; ATTEND Internal Medicine
DX: E86.0 Dehydration (principal); R19.7 Diarrhea, unspecified; I95.1 Orthostatic hypotension; F32.9 Major depressive disorder, single episode, unspecified; R63.0 Anorexia; E87.1 Hypo-osmolality and hyponatremia; E10.9 Type 1 diabetes mellitus without complications; Z96.41 Presence of insulin pump (external) (internal); D64.9 Anemia, unspecified; E03.9 Hypothyroidism, unspecified; I25.10 Atherosclerotic heart disease of native coronary artery without angina pectoris; Z66 Do not resuscitate
CPT/HCPCS: 84484-ER; 97116-GP; 97162-GP; 97166-GO; 97535-GO; G0378; J1650; J1815